=== PATIENT | male | born 1960 | race Caucasian/White ===

== ENCOUNTER → 2017-06-23 | Outpatient (CLI) | payer OTHER ==
--- NOTE | ~2017-06-23 | MR164 ---
[facility] A Service of [facility] / [facility] RADIOLOGY TEXT RESULTS PATIENT: KIARA ANDRES LOCATION: [facility] : 60 UNIT #: [id number] AGE: [address]: Armando Machado MD SEX: M ORDER DR: [id number] [place] [id number] MR#: [id number] Acc #: [id number] NAME: KIARA ANDRES : 1960 SEX: M STUDY DATE/TIME: 06/23/2017 16:36 UNIT: [facility] ROOM: STUDY DESCRIPTION: MR Shoulder Wo Contrast Lt Attending Physician: Armando Machado M.D. Ordering Physician: Armando Machado M.D. Primary Care Physician: Armando Machado M.D. MRI CENTER REPORT This report is preliminary unless electronic signature is present. EXAM MRI left shoulder, 06/23/2017. COMPARISON Left shoulder radiograph, 05/11/2017. HISTORY Order states left shoulder pain, tendinitis. History sheet states no specific injury and no shoulder surgery. Increasing pain with limited range of motion, decreased strength for about 7 months. Left-handed and does a lot of repetitive motion at work. FINDINGS There is moderate hypertrophic AC joint arthrosis or capsuloligamentous thickening, osteophyte formation, and mild articular irregularity. There is mild supraspinatus and infraspinatus tendinosis without a tear. Subscapularis and teres minor tendons are intact. Small lobulated cystic lesion just anterior to the biceps anchor in the anterior interval is nonspecific, but could reflect a labral cyst related to labral pathology, although no definite SLAP tear is noted. Biceps tendon is otherwise intact. There is a tiny paralabral cyst in the posterosuperior quadrant at the approximate 2 o'clock glenoid axis extending towards the superior labrum, suspicious for a small labral tear. In addition, tiny paralabral cysts are noted in the anteroinferior glenoid quadrant, suspicious for underlying labral pathology that is not definitively confirmed. Consider orthopedic evaluation to assess for symptomatic labral pathology and the need for MR arthrography. Glenohumeral joint shows no effusion, chondral/osteochondral lesion, or STS. [facility] A Service of [facility] & [facility] / [facility] RADIOLOGY TEXT RESULTS PATIENT: KIARA ANDRES LOCATION: [facility] : 60 UNIT #: [id number] AGE: [address]: Armando Machado MD SEX: M ORDER DR: visible loose body. There is no marrow lesion or fracture. IMPRESSION 1. Moderate heterotopic AC joint arthrosis. 2. Minimal rotator cuff tendinosis without a tear. 3. 3 potential small paralabral cysts involving 3 different quadrants concerning for labral pathology that is not completely confirmed or characterized on this exam. See above recommendations. Dictated by... Yamileth Hand M.D. THIS IS AN ELECTRONICALLY VERIFIED REPORT Yamileth Hand M.D. at 06/27/2017 12:08 PM JONES/candy TD: 06/26/2017 18:04 JOB #: [id number] MRI CENTER REPORT Page 1 of 1
== END | disposition home or self-care (01) ==
LOC: SMRI 16:16
DX: M25.512 Pain in left shoulder (principal); M75.80 Other shoulder lesions, unspecified shoulder; S43.432A Superior glenoid labrum lesion of left shoulder, initial encounter; M19.011 Primary osteoarthritis, right shoulder
CPT/HCPCS: 73221